=== PATIENT | female | born 1950 | race Caucasian/White ===

== ENCOUNTER 2018-04-07 18:12 | Emergency (ER) | payer OTHER ==
[~2018-04-07] VITALS: Ht 162.6 cm; Wt 54.4 kg
--- NOTE | ~2018-04-07 | EKG ---
[address] [address] [place] [address] ELECTROCARDIOGRAM REPORT Name: CONCETTA NIETO 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: [facility] : 1950 Requested By: Linda Lowery Order Number: [id number] MD: Jose M Phelps Measurements Intervals [place] Rate: 70 P: 20 NJ: 106 QRS: 50 QRSD: 87 T: 47 QT: 364 QTc: 393 Interpretive Statements Sinus rhythm Short NJ interval Probable anterior infarct, old Compared to ECG 08/31/2015 22:52:15 Septal Q waves are now present Electronically Signed On 04-08-2018 8:12:19 CDT by Jose M Phelps [email or web address] <ELECTRONICALLY SIGNED> By: Jose M Phelps MD, [facility] 04/08/18 0812 1824 23 Jose M Phelps MD, FACC /EPI
[~2018-04-07 18:12] MED LIST: AMOXICILLIN 50500 MG PO; BENTYL10 MG PO; BENZTROPINE MES1 MG PO; BISACODYL SUPP10 MG RECTAL; COLACE100 MG PO; CYMBALTA60 MG PO; DUONEB 2.5-0.5 M3 ML INH; ENOXAPARIN40 MG/0.1 SUBQ; GABAPENTIN 100100 MG PO; HYDROCODONE-APA1 TA1 PO; IBUPROFEN 400400 M2 PO; IRON325 PO; LEVOTHYROXINE 0.1 MG PO; MIRALAX17 GM; MYLANTA PO; RISPERDAL 3 MG T3 MG PO; SENNA8.6 M1 PO; SYMBICORT160 MCG/4.; SYMBICORT160 MCG/4. INH; THERA M PLUS T1 EAC2 PO; TRAMADOL 50 MG50 MG PO; TUSSIN15 MG/5 ML; TYLENOL325 MG PO; VALIUM5 MG PO; VALPROIC A250 MG/51 PO; VITAMIN D250000 UNIT PO; VITAMINC500 PO; ZYPREXA10 MG/VIAL IM
[2018-04-07 19:14] LABS: URINE BILIRUBIN NEGATIVE (Negative); URINE BLOOD NEGATIVE (Negative); URINE CLARITY CLEAR; URINE COLOR YELLOW; URINE GLUCOSE-RANDOM* NEGATIVE (Negative); URINE KETONES TRACE (Negative); URINE LEUKOCYTES NEGATIVE (Negative); URINE NITRITE NEGATIVE (Negative); URINE PROTEIN (DIPSTICK) NEGATIVE (Negative); URINE SPECIFIC GRAVITY 1.015 (1.005-1.035); URINE UROBILINOGEN 0.2 E.U./dl (0.2-1.0)
== END 2018-04-07 21:02 | disposition home or self-care (01) ==
LOC: ER 18:12
PROVIDERS: Emergency Medicine
DX: S00.03XA Contusion of scalp, initial encounter (principal); F17.210 Nicotine dependence, cigarettes, uncomplicated; F31.9 Bipolar disorder, unspecified; F41.9 Anxiety disorder, unspecified; E03.9 Hypothyroidism, unspecified; M19.90 Unspecified osteoarthritis, unspecified site; J44.9 Chronic obstructive pulmonary disease, unspecified; Z88.8 Allergy status to other drugs, medicaments and biological substances; Z88.2 Allergy status to sulfonamides; W01.0XXA Fall on same level from slipping, tripping and stumbling without subsequent striking against object, initial encounter; Y92.89 Other specified places as the place of occurrence of the external cause; Y93.89 Activity, other specified; Y99.8 Other external cause status

== ENCOUNTER 2019-09-06 13:10 | Inpatient (IN) | payer OTHER ==
[~2019-09-06] VITALS: Ht 162.6 cm; Wt 51.0 kg
[~2019-09-06 13:10] MED LIST changes: +SENNA PLUS TAB1 EACH PO; -SENNA8.6 M1 PO
[2019-09-06 15:09] LABS: ABSOLUTE NEUTROPHILS 7.2 thou/uL (1.4-8.2); BASOPHILS 0.4 % (0.0-2.0); EOSINOPHILS 0.4 % (0.0-3.0); HEMATOCRIT 37.8 % (37.0-47.0); HEMOGLOBIN 12.5 gm/dL (12.0-15.0); MCH 29.4 pg (26.0-34.0); MCHC 33.1 g/dL (28.0-37.0); MCV 88.9 fL (80.0-100.0); MONOCYTES 2.8 % (1.0-8.0); PLATELET COUNT 288 thou/uL (150-400); POLYS 85.4 % (36.0-66.0); RBC 4.25 mil/uL (4.20-5.00); RDW 15.8 % (10.5-14.5); WBC 8.4 thou/uL (4.0-11.0)
[2019-09-06 15:19] LABS: ANION GAP 6 mmol/L (7-16); BUN 10 mg/dL (7-18); CALCIUM 9.2 mg/dL (8.5-10.1); CHLORIDE 97 mmol/L (98-107); CO2 33 mmol/L (21-32); CREATININE 0.7 mg/dL (0.6-1.0); GLUCOSE 110 mg/dL (74-106); POTASSIUM 3.4 mmol/L (3.5-5.1); SODIUM 136 mmol/L (136-145)
[2019-09-06 15:28] LABS: MAGNESIUM 1.7 mg/dL (1.8-2.4); TROPONIN-I <0.06 ng/mL (<0.06)
[2019-09-06 15:42] LABS: URINE BILIRUBIN NEGATIVE (Negative); URINE BLOOD NEGATIVE (Negative); URINE CLARITY SL CLOUDY; URINE COLOR YELLOW; URINE GLUCOSE-RANDOM* NEGATIVE (Negative); URINE KETONES NEGATIVE (Negative); URINE NITRITE-REFLEX NEGATIVE (Negative); URINE PROTEIN (DIPSTICK) NEGATIVE (Negative); URINE SPECIFIC GRAVITY <= 1.005 (1.005-1.035); URINE UROBILINOGEN 0.2 E.U./dl (0.2-1.0)
[2019-09-06 15:43] LABS: URINE LEUKOCYTES-REFLEX 1+ (Negative)
[2019-09-06 15:52] LABS: BACTERIA-REFLEX >30 Many /HPF (None Seen); CASTS None Seen /LPF (None Seen); CRYSTALS None Seen /LPF (None Seen); SQUAMOUS None Seen /LPF (0-3); URINE RBC 0-2 Rare /HPF (0-2); URINE WBC-REFLEX 0-5 Rare /HPF (0-5)
[2019-09-06] MEDS ORDERED: FUROSEMIDE 20 M20 MG PO ×2 (16:19→23:01)
[2019-09-06] MEDS ORDERED: MIRTAZAPINE7.5 MG PO (16:20)
[2019-09-06] MEDS ORDERED: PREDNISONE 10 M10 M1 PO (16:20)
[2019-09-06] MEDS ORDERED: NEURONTIN100 MG PO (16:27)
[2019-09-06] MEDS ORDERED: BENTYL 10 MG CA10 MG PO (16:28)
[2019-09-06 16:35] VITALS: BP 92/55
[2019-09-06 17:21] LABS: TSH 5.537 uIU/mL (0.358-3.740)
[2019-09-06 18:36] VITALS: BP 102/63
[2019-09-06 19:30] VITALS: BP 106/69
[2019-09-06] MEDS ORDERED: BENZTROPINE ME0.5 MG PO (22:57)
[2019-09-06] MEDS ORDERED: CYMBALTA60 MG PO (23:00)
[2019-09-07] VITALS (10 sets, daily range): BP systolic 110–150; BP diastolic 66–90
[2019-09-07] MEDS ORDERED: VALPROIC A250 MG/51 PO (00:29)
[2019-09-07] MEDS ORDERED: SYMBICORT160 MCG/4. INH (00:38)
--- NOTE | 2019-09-07 00:43 | NUR ---
PATIENT WAS A NEW ADMISSION TO THE UNIT AT THE BEGINNING OF THIS SHIFT. SHE ARRIVED VIA CART FROM THE ER AND WAS TRANSFERRED TO THE BED WITHOUT INCIDENT. PATIENT IS CONFUSED AND UNABLE TO PARTICIPATE FULLY IN HER CARE PLAN. PATIENTS CHIEF COMPLAINT WAS PAIN AND SHE WAS TREATED APPROPRIATELY. BREATHING SATURATION WAS LOW UPON INITIAL ASSESSMENT. ORDERS OBTAINED FOR CONTINUOUS SAT MONITOR AND OXYGEN. THE SURGEON ASSESSED PATIENT AND NURSE RECEIVED ORDERS TO HAVE PATIENT READY FOR POTENTIAL SURGERY ON 09/08. PATIENT IS UNABLE TO CONSENT SO NURSING STAFF WILL HAVE TO CONTACT PATIENTS GUARDIAN. NURSE TO COMPLETE ADMISSION AND INITIATE PLAN OF CARE.
[2019-09-07 06:11] LABS: CALCIUM 8.3 mg/dL (8.5-10.1); CREATININE 0.6 mg/dL (0.6-1.0); POTASSIUM 4.3 mmol/L (3.5-5.1)
[2019-09-07 06:15] LABS: ALBUMIN 2.5 g/dL (3.4-5.0); PHOSPHORUS 4.1 mg/dL (2.5-4.9)
--- NOTE | 2019-09-07 06:32 | NUR ---
PT NOTED TO HAVE LARGE INFESTATION OF LICE WITH NITS AT LEAST 6 INCHES DOWN THE HAIR SHAFT. PT STATED THAT SHE HAS "BUGS" AND HAS PUT NIX ON THEM IN THE PAST BUT DOESNT HAVE ANY HELP GETTING THEM OUT. STATES ALL HER "FRIENDS" WHERE SHE LIVES HAS THEM WELL. SEVERAL BLOOD SPOTS NOTED ON PILLOW AND SCABS AT NAPE OF NECK. PT REPORTED THAT THEY ARE MISERABLE AND AGREED TO CUT HAIR WHERE IT WAS MATTED WITH BLOOD AND SCABS. NIX APPLIED PER ORDER, CAP PLACED AND BED CHANGED. PT TOLERATED WELL.
--- NOTE | 2019-09-07 07:10 | NUR ---
RECEIVED OT ORDER, PATIENT WITH A FRACTURED FEMORAL NECK AND RADIAL WRIST FX. WILL AWAIT ORDERS AFTER ORTHO CONSULT AND PROBABLE SURGERY.
--- NOTE | 2019-09-07 07:50 | HC ---
[facility] [place] [address] CONSULTATION Name: CONCETTA NIETO Room #: 354-P ADM IN M.R.#: [id number] Admission: 09/06/19 Attend Phys: Ashwini Guajardo Discharge: Date of : 48 Report #: [id number] THIS REPORT FOR: //name// CC: Steven Guajardo DATE OF SERVICE: 09/06/2019 CHIEF COMPLAINT: Fractures, left femoral neck and the left distal radius. HISTORY OF PRESENT ILLNESS: This very frail 69-year-old female is demented and is apparently a jorgensen of the [facility]. I am not certain of her current living location. She apparently fell, injuring the left hip and the left wrist. At the time of my evaluation, she is communicative and notes that she does have a hip injury and a wrist injury, but is unable to give much additional history. She is obviously demented, and is quite slender and quite frail. The left upper extremity is well-supported in a well-padded short arm splint. The fingers show good movement and satisfactory alignment, and satisfactory neurologic and vascular status. The left lower extremity is uncomfortable with any movement at the hip, but there is no obvious shortening nor any significant rotational deformity. The knee, lower leg, foot and ankle appear to be intact and stable. The opposite right lower extremity reveals satisfactory movement with only minor discomfort. IMAGING: X-rays of the left hip reveal a mildly impacted fracture of the femoral neck in slight valgus position with good bony impaction in a fairly stable position. There is mild degenerative arthritis of the hip. No other significant problems were noted. The opposite right hip already has a total hip arthroplasty, which appears to be well-positioned and stable. X-rays of the left wrist reveal a transverse fracture across the metaphyseal region of the distal radius. There is good bony contact and acceptable alignment without significant comminution. IMPRESSION AND PLAN: This frail 69-year-old female is demented and seems to have limited activity. Her left wrist fracture is probably stable, and I would suggest nonsurgical management with a cast or a splint with periodic inspection to monitor skin and comfort. The left hip is more difficult. The fracture is in satisfactory and fairly stable valgus impacted position. If she can be cooperative, this fracture may heal with and without surgery. If, however, she is noncooperative and tends to get up on her own and bear weight, then the fracture will probably displace; we could therefore consider either percutaneous screw fixation or hemiarthroplasty. Based upon the current limited information and the x-ray evaluation, I think I would suggest percutaneous screw stabilization as the best option. I have tried to contact the responsible green party, but have had no luck at the time of this dictation. We will see whether [facility] [address] [place] [address] CONSULTATION Name: CONCETTA NIETO Room #: 354-P [facility] IN M.R.#: [id number] Admission: 09/06/19 Attend Phys: Ashwini Guajardo Discharge: Date of : 48 Report #: [id number] Repacker can reach the appropriate persons and then consider our next step. On the chance that she will be able to go to the operating room tomorrow, we will try to keep her n.p.o., but we will have this discussion again at that point. For now, we will keep her at bed rest and protect the left wrist with a simple splint. <ELECTRONICALLY SIGNED> By: Nishant Degroot MD 09/07/19 0750 [id number] Nishant Degroot MD /nt
--- NOTE | 2019-09-07 08:04 | NUR ---
left VM with public inside sales administrator to call back.
--- NOTE | 2019-09-07 15:50 | NUR ---
INITIAL ASSESSMENT: HERIBERTO received consult due to pt being admitted from a nursing facility. Reviewed chart and spoke with nursing. Pt was admitted from [facility] due to an unwitnessed fall. Pt with left femoral neckfx and left radius fx. Pt to have surgery today per ortho. Consents obtained from [facility] office this morning. Pt is a jorgensen of the [facility]. Pt noted to have head lice upon admission. Pt is in isolation. HERIBERTO spoke with Duncan Torres with [facility] office to provide update. Duncan notified [facility]'s DON of head lice. Facility is looking into the matter. Plan is for pt to return to [facility] when medically stable. inventory planner to fax clinical updates to [facility] tomorrow. HERIBERTO is following to assist as needed with discharge planning.
--- NOTE | 2019-09-07 17:28 | EKG ---
[address] [employer] [place] [address] ELECTROCARDIOGRAM REPORT Name: CONCETTA NIETO Room #: 354-P ADM IN M.R.#: [id number] Admission: 09/06/19 Attend Phys: Ashwini Guajardo Discharge: Date of : 48 Report #: [id number] THIS REPORT FOR: //name// 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: [place] : 1950 Requested By: Joe Forbes Order Number: [id number] MD: Jose M Phelps Measurements Intervals [place] Rate: 85 P: 74 CO: 124 QRS: 66 QRSD: 85 T: 75 QT: 361 QTc: 430 Interpretive Statements Sinus rhythm No significant abnormality Compared to ECG 04/07/2018 18:24:01 Septal Q waves are no longer present Electronically Signed On 09-07-2019 17:27:53 SIPHONER by Jose M Phelps [email or web address] <ELECTRONICALLY SIGNED> By: Jose M Phelps MD, [facility] 09/07/19 1727 D: [id number] Jose M Phelps MD, FACC /EPI
--- NOTE | 2019-09-07 18:37 | NUR ---
CONT ON ISOLATION FOR LICE. NOTED TO HAVE QUITE A FEW LICE FALLING OFF HER HAIR ( ONE). SHE HAS NOT BEEN ITCHING. RETURNED FROM SURGERY WITH CAST TO LEFT HAND AND DRESSING TO LEFT HIP. WILL CONT WITH PLAN OF CARE.
[2019-09-08 04:19] VITALS: BP 125/74
--- NOTE | 2019-09-08 05:59 | NUR ---
PATIENT IS PROGRESSING SLOWLY IN HER CARE PLAN. VITAL SIGNS STABLE WITH PATIENT HAVING NO COMPLAINTS OF NAUSEA. PATIENT DID HAVE PAIN IN LEFT HIP AND WAS TREATED APPROPRIATELY. PATIENT IS CONFUSED AND UNABLE TO PARTICIPATE IN CARE. SURGICAL SITE REMAINS CLEAN, DRY, AND INTACT. BREATHING STABLE ON THREE LITERS NASAL CANNULA EVIDENCED BY ASSESSMENT AND SPOT OXYGENATION CHECKS. PATIENT DID HAVE A COUGHING FIT AND APPEARED TO CHOKE ON THICK SPUTUM. PATIENT SUCTIONED AND ORDER RECEIVED FROM PROVIDER FOR CORRECTIVE MEASURES WHICH WERE EFFECTIVE. CONTINUE PLAN OF CARE.
[2019-09-08 08:08] VITALS: BP 131/84
[2019-09-08 08:10] VITALS: BP 131/84
--- NOTE | 2019-09-08 14:57 | NUR ---
DISCHARGE PLANNING. PATIENT IS A RESIDENT AT [facility]. PLAN IS FOR PATIENT TO RETURN TO [facility] ONCE MEDICALLY READY. ANTICIPATED DISCHARGE PLANNED FOR THIS WEEKEND. CALL PLACED TO VIANCA ANTUNEZ FOR [facility] TO NOTIFY OF ANTICIPATED DISCAHRGE AND CLINICALS SENT. VOICE MAIL LEFT FOR HARMONY. FD FORM COMPLETED PER UNIT SW FOR TRANSPORTATION BACK TO [facility]. [facility] CONTACT NUMBER IS [phone] FAX [phone] PLEASE CONTACT [facility] ONCE PHYSICIAN COMPLETES DISCHARGE ORDERS TO ARRANGE PATIENT DISCHARGE. PLEASE FAX DISCHARGE ORDERS TO ABOVE FAX NUMBER. PLEASE FAX [facility] PCS FORM TO [phone] AND ARRANGE TRANSPORTATION THROUGH [facility] DISPATCH [phone]. INFORMATION ALSO AVAILABLE ON FD PCS FORM. THANK YOU.
[2019-09-08 15:06] VITALS: BP 147/90
--- NOTE | 2019-09-08 15:47 | NUR ---
HERIBERTO reviewed chart and spoke with nursing and attending physician. Pt may be ready for discharge back to [facility] over the weekend. Facility notified by strategic planner. HERIBERTO notified Duncan Torres with the [facility] Office to provide update. After Hours guardian will need to be notified when pt is discharged. Will need chart copy. HERIBERTO is following to assist as needed with discharge planning. [facility] PUBLIC PHYSICIAN CODER OFFICE: [phone] [facility] CONTACT NUMBER IS [phone] FAX [phone] PLEASE CONTACT [facility] ONCE PHYSICIAN COMPLETES DISCHARGE ORDERS TO ARRANGE PATIENT DISCHARGE. PLEASE FAX DISCHARGE ORDERS TO ABOVE FAX NUMBER. PLEASE FAX [facility] PCS FORM TO [phone] AND ARRANGE TRANSPORTATION THROUGH [facility] DISPATCH [phone]. INFORMATION ALSO AVAILABLE ON [facility] PCS FORM. THANK YOU.
--- NOTE | 2019-09-08 19:29 | NUR ---
pt is A&OX2 ( person and place), pt is confusion at time, pt starts eating and drinking, pt is continuing o2 3L/min/nc, and iv abx, pt's vs and o2sat are stable, pt's L HIP surgical dressing is CDI, pt's L hand is warm with cast, pt has pain when change position, but pt is tolerated pain.pt may dc to SN tomorrow.
[2019-09-08 22:11] VITALS: BP 150/119
[2019-09-09 02:58] VITALS: BP 118/83
--- NOTE | 2019-09-09 06:27 | NUR ---
PT REFUSING TO WEAR OXYGEN AND 02 LEVELS AT 85-90%. HOB AT 45 DEGREES. PT CALLED OUT 2X FOR PAIN MEDICATION. TRAMADOL GIVEN WITH GOOD RESULTS BOTH TIMES. JOHNS IN PLACE WITH 300+ML URINE OUTPUT FOR SHIFT. ISOLATION AND FALL PRECAUTIONS IN PLACE. HOURLY ROUNDING. PT SHOULD DC BACK TO HER FACILITY TODAY. [facility] TICKET TO RIDE IS ON TOP OF CHART IN BINDER. [T CAN USE CALL LIGHT EFFECTIVELY.
[2019-09-09 09:00] VITALS: BP 121/87
[2019-09-09] MEDS ORDERED: ENOXAPARIN40 MG/0.1 SUBQ (09:17)
[2019-09-09] MEDS ORDERED: CEFUROXIME250 MG PO (09:17)
[2019-09-09] MEDS ORDERED: RISPERDAL 1 MG T1 MG PO (09:18)
[2019-09-09] MEDS ORDERED: TRAMADOL 50 MG50 MG PO (09:18)
--- NOTE | 2019-09-09 15:55 | NUR ---
PT is A&OX2 ( person and place ), but pt is confused at time, pt is contiunig o2 2 L/MIN/NC and iv abx, pt's vs and o2sat are stable, pt's L hip surgical dressing has changed, L hip incision is intact, small clear drinage, pt will DC to [facility] today, RN has giveing report , RN has notified [facility] public administrcotor office about pt's discharge, pt has pain medication about 1400pm, RN has report to [facility] and home nurse to F/U surgical Dr in 1 week, pt's L arm cast is CDI, PT'L hand is warm.
[2019-09-09 16:19] VITALS: BP 144/94
--- NOTE | 2019-09-09 17:03 | NUR ---
[facility] ambulance shrimp picker pt to SNF now, pt is cooperative.
--- NOTE | 2019-09-12 12:28 | O ---
[facility] [place] [address] OPERATIVE REPORT Name: CONCETTA NIETO Room #: 354-P [facility] IN M.R.#: [id number] Admission: 09/06/19 Attend Phys: Ashwini Guajardo Discharge: 09/09/19 Date of : 48 Report #: [id number] THIS REPORT FOR: //name// CC: Steven Guajardo DATE OF SERVICE: 09/07/2019 PREOPERATIVE DIAGNOSES: Fracture, left femoral neck and fracture, left distal radius. POSTOPERATIVE DIAGNOSES: Fracture, left femoral neck and fracture, left distal radius. PROCEDURES: Percutaneous screw fixation, left femoral neck fracture and closed reduction with cast application, left distal radius fracture. SURGEON: Nishant Degroot MD INDICATIONS: This frail 69-year-old female is demented and a jorgensen of the [facility]. I am uncertain with regard to her activity or ambulation level. She apparently fell injuring both the left hip and the left wrist. X-rays reveal a valgus impacted femoral neck fracture in satisfactory position and a transverse fracture of the metaphyseal region of the left distal radius, which is also in acceptable position. I feel percutaneous pin fixation of the femur fracture is most appropriate. I think the risk and probably be managed in a cast. DESCRIPTION OF PROCEDURE: The patient was taken to the operating room where she was placed under brief general anesthetic. She was positioned on the fracture table, so that the left hip could be visualized. Prophylactic intravenous antibiotics were administered. C-arm was used. A small skin incision was made over the lateral aspect of the proximal femur. Three guidewires were positioned using C-arm guidance and then three 7.5 mm cannulated screws were placed, bringing these about 5 mm below the subchondral bone at the femoral head. The head seems to be in satisfactory valgus position and seems to be well impacted and stable. Screw purchase is satisfactory, although she does seem to have significant osteoporosis. The small skin incision was closed with 2-0 Vicryl and skin [place]. Attention was then directed to the left wrist. The previous splint was removed and gentle manipulation performed. A C-arm was used to visualize the fracture, improved and acceptable alignment was established. A well-padded short arm fiberglass cast was then applied. C-arm views show satisfactory position of the [facility] [address] [place] [address] OPERATIVE REPORT Name: CONCETTA NIETO Room #: 354-P [facility] IN M.R.#: [id number] Admission: 09/06/19 Attend Phys: Ashwini Guajardo Discharge: 09/09/19 Date of : 48 Report #: [id number] distal radius fracture. The patient was then awakened and returned to recovery room in satisfactory condition. <ELECTRONICALLY SIGNED> By: Nishant Degroot MD 09/12/19 1228 1251 1344 Nishant Degroot MD /nt
== END 2019-09-09 17:02 | DRG 480 ==
LOC: ER 13:10 → 3W 18:31 → ICU 09-07 16:41 → 3W 09-07 16:46
PROVIDERS: Emergency Medicine; ADMIT Hospitalist
PROC: 0QH734Z Insertion of Internal Fixation Device into Left Upper Femur, Percutaneous Approach (ICD-10-PCS; principal; 2019-09-07)
PROC: 0PSJXZZ Reposition Left Radius, External Approach (ICD-10-PCS; 2019-09-07)
PROC: 2W3DX2Z Immobilization of Left Lower Arm using Cast (ICD-10-PCS; 2019-09-07)
PROC: 2W5 Placement, Anatomical Regions, Removal (ICD-10-PCS; 2019-09-07)
DX: S72.002A Fracture of unspecified part of neck of left femur, initial encounter for closed fracture (principal); E43 Unspecified severe protein-calorie malnutrition; S52.92XA Unspecified fracture of left forearm, initial encounter for closed fracture; N39.0 Urinary tract infection, site not specified; Z68.1 Body mass index [BMI] 19.9 or less, adult; E87.6 Hypokalemia; E86.0 Dehydration; F20.9 Schizophrenia, unspecified; F41.9 Anxiety disorder, unspecified; F31.9 Bipolar disorder, unspecified; E03.9 Hypothyroidism, unspecified; M19.90 Unspecified osteoarthritis, unspecified site; J44.9 Chronic obstructive pulmonary disease, unspecified; K58.9 Irritable bowel syndrome, unspecified; W01.0XXA Fall on same level from slipping, tripping and stumbling without subsequent striking against object, initial encounter; I95.9 Hypotension, unspecified; E83.42 Hypomagnesemia; F17.210 Nicotine dependence, cigarettes, uncomplicated; K59.00 Constipation, unspecified; E53.8 Deficiency of other specified B group vitamins; B96.20 Unspecified Escherichia coli [E. coli] as the cause of diseases classified elsewhere; M81.0 Age-related osteoporosis without current pathological fracture; Z88.8 Allergy status to other drugs, medicaments and biological substances; Z79.899 Other long term (current) drug therapy; Y93.89 Activity, other specified; Y92.89 Other specified places as the place of occurrence of the external cause; Y99.8 Other external cause status; Z79.52 Long term (current) use of systemic steroids; Z23 Encounter for immunization
CPT/HCPCS: 10879; 50010; 50101; 50386; 51412; 51538; 52304; 53400; 56525; 57092; 62110; 62900; 70005

== ENCOUNTER 2020-04-08 12:20 | Inpatient (IN) | payer OTHER ==
[~2020-04-08] VITALS: Ht 162.6 cm; Wt 62.1 kg
--- NOTE | ~2020-04-08 | HC ---
[facility] [place] [address] CONSULTATION Name: CONCETTA NIETO Room #: 239-P ADM IN M.R.#: [id number] Admission: 04/08/20 Attend Phys: Giancarlo Spaulding MD Discharge: Date of : 48 Report #: [id number] THIS REPORT FOR: cc: Steven Alvarenga MD, Dennis R MD Sears, Ryan D. DO ~ CC: Steven Spaulding DATE OF SERVICE: 04/22/2020 PALLIATIVE CARE CONSULTATION REQUESTING PHYSICIAN: Dr. Sherman. CHIEF COMPLAINT: SARS-CoV-2. HISTORY OF PRESENT ILLNESS: The patient is a 69-year-old female who presented to [facility] initially on 04/08/2020. At such time, the patient had presented from [facility]. She had initial evaluation was for left jaw abscess. She had significant left facial swelling on presentation, was also noted to have a history of schizophrenia and bipolar disorder and significant COPD. This cellulitis was eventually noted to be parotiditis. She was also found to have bacteremia. On 04/14/2020, her obtain coronavirus testing came back positive. Subsequently unfortunately, the patient has had acute respiratory failure and required intubation. The edema associated with the cellulitis and potentially fluid buildup has led to airway compromise. She has been on steroids, but again with mechanical ventilation, she has required increased oxygen, now at 90% FiO2. She is on ventilator day #11. She has had prone ventilation as tolerated. Overall suspected worsening infection despite interventions, hypotensive over the previous night prior to my consultation, received volume along with albumin, but again worsening oxygenation as a result of this, has not been responsive. She does have a public gis administrator in place. PAST MEDICAL HISTORY: Significant for schizophrenia, bipolar disorder, hypothyroidism, COPD, irritable bowel syndrome. MEDICATIONS: Currently, Lasix 40 mg daily, Levophed, magnesium oxide, DuoNebs, potassium replacement, levothyroxine, dexamethasone 8 mg daily, Lovenox, vancomycin, Cymbalta, Humalog sliding scale, Rocephin, propofol. ALLERGIES: THORAZINE AND LORATADINE. FAMILY HISTORY: Unobtainable due to present medical condition. [facility] [address] [place] [address] CONSULTATION Name: CONCETTA NIETO Room #: 239-P [facility] IN M.R.#: [id number] Admission: 04/08/20 Attend Phys: Giancarlo Spaulding MD Discharge: Date of : 48 Report #: [id number] PAST SURGICAL HISTORY: Unobtainable due to present medical condition. REVIEW OF SYSTEMS: At this present time, this is unobtainable again, the patient ventilated, nonresponsive. PHYSICAL EXAMINATION: VITAL SIGNS: Temperature 37.1, pulse 89, respirations 12, blood pressure 100/54, 98% on ventilatory support. GENERAL: The patient is not alert. Certainly, she is ventilated at this time. No significant acute distress. HEENT: Again ventilatory tube in proper placement. RESPIRATORY: No apparent tachypnea over vent. CARDIOVASCULAR: Mild diffuse edema. ABDOMEN: No significant distention noted. LABORATORY DATA: These include hemoglobin 7.2, sodium 130, creatinine 0.2. ASSESSMENT AND PLAN: 1. Acute hypoxic respiratory failure. Again, due to SARS-CoV-2 and airway edema, possibly related to parotitis, at this time, the patient is on ventilatory support, but any worsening overall direction did discuss with the public gis administrator. This had paperwork to request a do not resuscitate for patient, which I feel would be appropriate at this time. I was waiting to receive this. I have not received this by the evening. We will fill it out as soon as received. Additionally, I did discuss that the patient may worsen overall and continued to worsen and therefore may represent a medical futility if agreed upon by the primary team. Certainly, she has a poor overall prognosis. If felt to benefit from a quality of life standpoint, but certainly from a standpoint that further medical treatment is not beneficial, then we may consider changing to a palliative type of case management with palliative extubation. At this point in time, awaiting DNR first and then at a secondary point, we would discuss with other team members to determine whether the case and what direction to take. 2. SARS-CoV-2, again overall leading to this preexisting hypoxic respiratory failure and causing her overall presentation appears to be worsening significantly, especially with previous pharyngeal edema. 3. Parotitis, again leading to a significant management issues with regards to her current condition, again, waiting on DNR status and then a consideration from the primary team whether they feel that she would benefit from continued medical interventions versus palliative type medical interventions. [address] [address] CONSULTATION Name: CONCETTA NIETO Room #: 239-P [facility] IN M.R.#: [id number] Admission: 04/08/20 Attend Phys: Giancarlo Spaulding MD Discharge: Date of : 48 Report #: [id number] Thank you very much for this consultation. We will continue to follow up with the team. Please contact me for any questions regarding her care. By: 2142 [id number] Phill Wheeler DO /nt
[~2020-04-08 12:20] MED LIST changes: +BENTYL 10 MG CA10 MG PO; +BENZTROPINE ME0.5 MG PO; +CEFUROXIME250 MG PO; +FUROSEMIDE 20 M20 MG PO; -LEVOTHYROXINE 0.1 MG PO; -MIRALAX17 GM; +MIRALAX17 GM PO; +MIRTAZAPINE7.5 MG PO; +NEURONTIN100 MG PO; +PREDNISONE 10 M10 M1 PO; +RISPERDAL 1 MG T1 MG PO; +SYNTHROID100 MC1 PO
[2020-04-08 12:21] VITALS: BP 156/100
[2020-04-08 13:10] LABS: HEMATOCRIT 39.8 % (37.0-47.0); HEMOGLOBIN 13.3 gm/dL (12.0-15.0); MCH 28.8 pg (26.0-34.0); MCHC 33.5 g/dL (28.0-37.0); MCV 85.9 fL (80.0-100.0); PLATELET COUNT 456 thou/uL (150-400); RBC 4.64 mil/uL (4.20-5.00); RDW 15.6 % (10.5-14.5); WBC 30.1 thou/uL (4.0-11.0)
[2020-04-08 13:33] LABS: ALBUMIN 2.4 g/dL (3.4-5.0); CALCIUM 8.8 mg/dL (8.5-10.1); CREATININE 0.6 mg/dL (0.6-1.0); TOTAL BILIRUBIN 0.8 mg/dL (0.2-1.0); TOTAL PROTEIN 7.4 g/dL (6.4-8.2)
[2020-04-08 13:41] LABS: POTASSIUM 2.8 mmol/L (3.5-5.1)
[2020-04-08 14:10] LABS: ABSOLUTE NEUTROPHILS 27.1 thou/uL (1.4-8.2); METAMYELOCYTES 1 %
[2020-04-08 16:38] LABS: TSH 4.013 uIU/mL (0.358-3.740)
[2020-04-08] MEDS ORDERED: INGREZZA40 MG PO (19:29)
[2020-04-08] MEDS ORDERED: IBU600 MG PO (19:31)
[2020-04-08 20:20] VITALS: BP 134/82
--- NOTE | 2020-04-08 20:30 | NUR ---
TRIED CALLING REPORT, NURSE UNAVAILABLE.
[2020-04-08 20:56] VITALS: BP 127/74
[2020-04-09 04:20] LABS: HEMATOCRIT 33.4 % (37.0-47.0); MCH 29.2 pg (26.0-34.0); MCHC 33.4 g/dL (28.0-37.0); MCV 87.3 fL (80.0-100.0); RBC 3.83 mil/uL (4.20-5.00); RDW 15.8 % (10.5-14.5); WBC 25.1 thou/uL (4.0-11.0)
[2020-04-09 04:24] LABS: HEMOGLOBIN 11.2 gm/dL (12.0-15.0); PLATELET COUNT 349 thou/uL (150-400)
[2020-04-09 04:39] LABS: CALCIUM 8.2 mg/dL (8.5-10.1); CREATININE 0.6 mg/dL (0.6-1.0); MAGNESIUM 2.6 mg/dL (1.8-2.4)
[2020-04-09 04:52] LABS: POTASSIUM 3.8 mmol/L (3.5-5.1)
[2020-04-09 05:14] VITALS: BP 133/82
[2020-04-09 05:27] LABS: ABSOLUTE NEUTROPHILS 22.3 thou/uL (1.4-8.2)
[2020-04-09 05:28] LABS: ANISOCYTOSIS 1+; PLATELET ESTIMATE NORMAL; POIKILOCYTOSIS 1+
--- NOTE | 2020-04-09 06:41 | NUR ---
RECEIVED REPORT FROM KM ULRICH RN.PATIENT ARRIVED TO ROOM 204 AROUND 2049.ALERT BUT SLEEPY.WILL ANSWER SOME QUESTIONS BUT FORGETS AND CAN BE CONFUSED AT TIMES.PAIN WELL CONTROLLED.MONITOR SHOWS SINUS TACHY.POC CONTINUED.
[2020-04-09 07:47] VITALS: BP 135/91
[2020-04-09 11:40] VITALS: BP 132/85
--- NOTE | 2020-04-09 15:25 | NUR ---
PLEASANTLY CONFUSED. COMPLETE CARES. INCONTINENT OF URINE WITH BRIEF. SHE PERMITTED US TO CUT URINE SOAKED STREET CLOTHES OFF EARLY THIS A.M. POSITIVE BC CALLED TO DR. MARTINEZ AT 0900. DR. JIMENEZ HERE, ADDS VANCOMYCIN TO [place]. ST PER TELE. FALL PRECAUTIONS IN PLACE. WILL CONTINUE TO FOLLOW CLOSELY.
--- NOTE | 2020-04-09 16:33 | NUR ---
Patient admits from [facility] with jaw pain and swelling. Patient with hx of schzophrenia, bipolar, copd. Sp with TATO Constantino who is deputy PA who gives consent to treat. Updated RN. Plan return to [facility]. [facility]emgt following.
[2020-04-09 19:46] VITALS: BP 111/75
[2020-04-10 05:34] VITALS: BP 112/61
[2020-04-10 06:03] LABS: HEMATOCRIT 30.2 % (37.0-47.0); HEMOGLOBIN 9.9 gm/dL (12.0-15.0); MCHC 32.8 g/dL (28.0-37.0); MCV 88.5 fL (80.0-100.0); RBC 3.42 mil/uL (4.20-5.00); RDW 15.6 % (10.5-14.5); WBC 19.6 thou/uL (4.0-11.0)
[2020-04-10 06:35] LABS: CALCIUM 7.7 mg/dL (8.5-10.1); CREATININE 0.5 mg/dL (0.6-1.0); POTASSIUM 4.7 mmol/L (3.5-5.1)
[2020-04-10 07:48] VITALS: BP 121/75
--- NOTE | 2020-04-10 07:48 | NUR ---
ASSUMED PT CARE AT 1900. PT IS ALERT BUT CONFUSED. NO SIGN OF DISTRESS NOTED IN PT. PT DOES SEEM AGITATED UPON MOVEMENT. PT IS STABLE. FALL PRECAUTION IN PLACE. ASSESSMENT COMPLETED AND DOCUMENTED. VERBALIZES PAIN. PAIN MED ADMINISTERED TO PT NEEDED. SCHEDULED MEDS ADMINISTERED TO OT. TOLERATED PO INTAKE. NO EVENTS OVERNIGHT. NO FURTHER NEEDS AT THIS TIME
[2020-04-10 12:25] VITALS: BP 115/74
[2020-04-10 16:26] VITALS: BP 123/88
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
[2020-04-10 19:20] VITALS: BP 130/82
[2020-04-11 01:20] LABS: URINE BILIRUBIN NEGATIVE (Negative); URINE BLOOD NEGATIVE (Negative); URINE CLARITY CLEAR; URINE COLOR YELLOW; URINE GLUCOSE-RANDOM* NEGATIVE (Negative); URINE KETONES 1+ (Negative); URINE LEUKOCYTES-REFLEX NEGATIVE (Negative); URINE NITRITE-REFLEX NEGATIVE (Negative); URINE PROTEIN (DIPSTICK) TRACE (Negative); URINE SPECIFIC GRAVITY >= 1.030 (1.005-1.035)
[2020-04-11 03:30] VITALS: BP 134/73
--- NOTE | 2020-04-11 06:30 | NUR ---
ASSUMED PT CARE AT 1900, PT IS AWAKE, DROWSY, ORIENTED TO PERSON, SR ON THE MONITOR, ASSESSMENTS CHARTED, REMAINS INCONTINENT OF BOWEL AND BLADDER, DENIES PAIN OR SOB, LEFT JAW STILL SWOLLEN, ATEMPTED TO MASSAGE IT BUT PT REFUSED, PT IS MORE ALERT THIS MORNING, TALKED TO HER THE IMPORTANCE OF BEING COMPLAIANT WITH CARE, RESTING IN BED, NO DISTRESS NOTED
[2020-04-11 06:52] LABS: HEMATOCRIT 27.8 % (37.0-47.0); HEMOGLOBIN 9.2 gm/dL (12.0-15.0); MCH 29.2 pg (26.0-34.0); MCHC 33.1 g/dL (28.0-37.0); MCV 88.4 fL (80.0-100.0); RBC 3.14 mil/uL (4.20-5.00); RDW 15.8 % (10.5-14.5); WBC 14.1 thou/uL (4.0-11.0)
[2020-04-11 07:02] LABS: CALCIUM 8.1 mg/dL (8.5-10.1); CREATININE 0.4 mg/dL (0.6-1.0); POTASSIUM 4.6 mmol/L (3.5-5.1)
[2020-04-11 07:50] VITALS: BP 129/69
[2020-04-11 11:32] VITALS: BP 120/67
--- NOTE | 2020-04-11 15:02 | NUR ---
FAXED CLINICAL UPDATE TO [facility] RECEIVED CONFIRMATION AND LEFT MSG WITH BUBBA IN ADM. DP TO FOLLOW.
[2020-04-11 15:16] VITALS: BP 147/83
--- NOTE | 2020-04-11 17:45 | NUR ---
PT CARE ASSUMED APPROX 0700. ASSESSMENTS CHARTED. PT REPORTS PAIN TO LEFT CHEEK. CURRENT POC MANAGING PAIN. VSS. TURNING PT Q2 HRS AND PRN. PT MORE ALERT BUT REMAINS CONFUSED. NOT IMPULSIVE. POOR APPETITE. DR MARTINEZ NOTIFIED. PT TOLERATING POC OTHERWISE. NO DISTRESS NOTED.
[2020-04-11 19:53] VITALS: BP 134/77
[2020-04-12 03:44] VITALS: BP 155/84
--- NOTE | 2020-04-12 04:24 | NUR ---
ASSUME PT CARE AT 1900. PT IS ALERT BUT CONFUSED. PT VERBALIZES PAIN. PAIN MED ADMINISTERED TO PT. ASSESSMENT COMPLETED AND DOCUMENTED. FALL PRECAUTION IN PLACE. PT IS NOTICED TO HAVE WHEEZING. SALES MANAGER NOTIFIED. BREATHING TREATMENT ORDERED. SCHEDULED MEDS ADMINISTERED TO PT. TOLERATED PO INTAKE. PT COUGHS WITH THIN LIQUIDS. CONTINUE TO MONITOR PT. NO FURTHER NEEDS AT THIS TIME.
[2020-04-12 05:48] LABS: HEMATOCRIT 31.6 % (37.0-47.0); HEMOGLOBIN 10.2 gm/dL (12.0-15.0); MCH 28.6 pg (26.0-34.0); MCHC 32.1 g/dL (28.0-37.0); RBC 3.55 mil/uL (4.20-5.00); RDW 15.5 % (10.5-14.5); WBC 12.1 thou/uL (4.0-11.0)
[2020-04-12 05:52] LABS: CALCIUM 8.2 mg/dL (8.5-10.1); CREATININE 0.6 mg/dL (0.6-1.0); POTASSIUM 4.6 mmol/L (3.5-5.1)
[2020-04-12 08:00] VITALS: BP 120/94
--- NOTE | 2020-04-12 08:43 | NUR ---
ASSUMED CARE OF PT AT SHIFT CHANGE, REPORTS OF YELLING AND SCREAMING AND NO SLEEP UNTIL 0500, PT KNOWS HER BDATE. VERY LOUD. LOOKED AT PICS OF ANIMALS AND CALMED DOWN, THEN YELLS AND DOESN'T MAKE SENSE, WILL CONTINUE TO MONITOR. CHANGED TELEVISION TO SOMETHING CALMER. WILL CONTINUE TO MONITOR. IS NOT IMPULSIVE THUS FAR, BED ALARM ENGAGED, SEE SEPARATE INTERVENTIONS FOR ASSESMENTS.
[2020-04-12 11:00] VITALS: BP 121/88
--- NOTE | 2020-04-12 15:16 | NUR ---
Patient resident of [facility]. If discharge over weekend Call [facility] [phone] If need transport call [facility] [phone]. Notify Public [employer] Machine Operator [phone] for consent to discharge.
[2020-04-12 16:00] VITALS: BP 147/86
[2020-04-12 19:53] VITALS: BP 175/99
[2020-04-13] VITALS (52 sets, daily range): BP systolic 81–185; BP diastolic 49–101
--- NOTE | 2020-04-13 00:43 | NUR ---
IT WAS NOTED THAT THE SHIFT PROGRESSED, FACIAL SWELLING INCREASED AND RIGHT SIDE OF THE FACE BEGAN TO SWELL WELL. NO NOTIFIED AND ENT PAGED. PT CONTINOUSLY HAVE INCREASED SECRETIONS. OXYGEN PLACED ON PATIENT. WAITING YARN WRAPPER BACK FROM ENT. CONTINUE TO MONITOR PT.
--- NOTE | 2020-04-13 03:44 | NUR ---
PT WAS INTUBATED BY DR YOUNGBLOOD DUE TO INCREASED AMOUNT OF SWELLING NOTED ON CAT SCAN. DR JAMES NOTIFIED ABOUT PT'S STATUS. PT IS STABLE POST-INTUBATION AND SHE IS TRANSFERRED TO ICU. CONTINUE TO MONITOR PT. NO FURTHER NEEDS AT THIS TIME.
[2020-04-13 03:57] LABS: BE(vivo) 0.9 mmol/L (-2 to +3); HCO3 22.2 mmol/L (22.0-26.0); PCO2 26.3 mmHg (35.0-45.0); PO2 213.4 mmHg (80.0-100.0); pH 7.545 (7.360-7.450); sO2 99.6 % (92.0-98.0)
[2020-04-13 05:47] LABS: CALCIUM 8.2 mg/dL (8.5-10.1); CREATININE 0.5 mg/dL (0.6-1.0)
--- NOTE | 2020-04-13 05:47 | NUR ---
Pt was transferred, intubated from Rm 204, per report, she was having increasing difficulty maintaining her airway, the left throat swelling was increasing, she became tachypneic, restless, and her sats were dropping despite supplemental O2. Pt is MARIO's, but not following commands, she was restrained to protect the ETT and peripheral IV. An #18 OGT was placed, and placement of the ETT and OGT was confirmed. The left side of her neck is red, warm to touch and swollen, as compared to the right side, pt will remain NPO at this time. Pt also had a #16 Fr collaod catheter placed, for I&O and also, pt is incontinent of bowel and bladder. After initial ABG was collected, the vent settings were adjusted and are currently, TV 450, PeeP of 5, FiO2 is 40 % and a rate of 14, her lungs are diminished and coarse to the bennett bases, sats are 98% and above, thick medrano secretions are suctioned. The pt has areas of bruising on her arms, she is quite thin and her candice area is slightly reddened. The bed is in the low/locked position, the siderails are up x 4, and the call light is within reach. ENT was notified of transfer. Her facesheet does not list any family, and the name provided is likely from her nursing facility. Will continue to monitor
[2020-04-13 06:00] LABS: HEMATOCRIT 38.2 % (37.0-47.0); MCH 28.5 pg (26.0-34.0); MCHC 32.2 g/dL (28.0-37.0); MCV 88.5 fL (80.0-100.0); RBC 4.32 mil/uL (4.20-5.00); RDW 15.6 % (10.5-14.5); WBC 14.9 thou/uL (4.0-11.0)
[2020-04-13 06:03] LABS: POTASSIUM 4.6 mmol/L (3.5-5.1)
[2020-04-13 06:08] LABS: HEMOGLOBIN 12.3 gm/dL (12.0-15.0)
--- NOTE | 2020-04-13 09:38 | NUR ---
ASSUMED CARE AT 0700, ASSESSMENT AND VITAL SIGNS COMPLETED PER ICU PROTOCOL. PT REMAINS INTUBATED AND SEDATED. RN WILL CONTINUE TO FOLLOW POC AND MONITOR.
[2020-04-13 11:25] LABS: BE(vivo) 0.2 mmol/L (-2 to +3); HCO3 23.5 mmol/L (22.0-26.0); PCO2 33.3 mmHg (35.0-45.0); PO2 104.4 mmHg (80.0-100.0); pH 7.466 (7.360-7.450); sO2 98.1 % (92.0-98.0)
--- NOTE | 2020-04-13 17:42 | NUR ---
CONSULTED TO PLACE A PICC FOR A PATIENT IN ICU. ORDER AND CONSENT NOTED. A #5F TRIPLE LUMEN POWER PICC WAS PLACED AFTER A BEDSIDE TIMEOUT WAS COMPLETED. THE LINE WAS TRIMMED TO 39CM AAND ADVANCED WITHOUT DIFFICULTY. LINE WAS CONFIRMED WITH A STAT CHEST XRAY AND RELEASED FOR USE
[2020-04-14] VITALS (96 sets, daily range): BP systolic 86–133; BP diastolic 46–85
--- NOTE | 2020-04-14 01:50 | NUR ---
PATIENT BECAME HYPOTENSIVE DUE TO SEDATION EARLY IN SHIFT. ORDERS OBTAINED FOR LEVOPHED GTT WHICH HAS BEEN TITRATED TO GOOD EFFECT.
[2020-04-14 05:24] LABS: HEMATOCRIT 31.3 % (37.0-47.0); MCH 28.5 pg (26.0-34.0); MCHC 32.7 g/dL (28.0-37.0); MCV 87.3 fL (80.0-100.0); PLATELET COUNT 433 thou/uL (150-400); RBC 3.58 mil/uL (4.20-5.00); WBC 20.1 thou/uL (4.0-11.0)
[2020-04-14 05:32] LABS: HEMOGLOBIN 10.2 gm/dL (12.0-15.0)
[2020-04-14 06:07] LABS: ALBUMIN 1.7 g/dL (3.4-5.0); CALCIUM 7.4 mg/dL (8.5-10.1); CREATININE 0.5 mg/dL (0.6-1.0); MAGNESIUM 1.6 mg/dL (1.8-2.4); PHOSPHORUS 4.7 mg/dL (2.5-4.9); TOTAL BILIRUBIN 0.3 mg/dL (0.2-1.0); TOTAL PROTEIN 5.1 g/dL (6.4-8.2)
[2020-04-14 06:12] LABS: POTASSIUM 3.5 mmol/L (3.5-5.1)
--- NOTE | 2020-04-14 07:47 | NUR ---
ASSUMED PATIENT CARE AT 1845. BREATHING STABLE ON VENTILATOR EVIDENCED BY ASSESSMENT AND CONTINUOUS SATURATION MONITORING. PATIENT WAS AGITATED AT THE START OF SHIFT BEFORE ADEQUATE SEDATION TOOK AFFECT. PATIENT VERY IMPULSIVE WHEN ALERT WITH ATTEMPTS MADE AT BREATHING TUBE. LEVOPHED PROVIDED FOR BLOOD PRESSURE SUPPORT. CONTINUE PLAN OF CARE.
[2020-04-14 10:17] LABS: METAMYELOCYTES 1 %
[2020-04-14 10:18] LABS: ABSOLUTE NEUTROPHILS 19.3 thou/uL (1.4-8.2)
[2020-04-14 10:19] LABS: ANISOCYTOSIS SLIGHT; OVALOCYTES FEW; POIKILOCYTOSIS SLIGHT
--- NOTE | 2020-04-14 19:45 | NUR ---
Pt sedated with Propofol and Fentanyl infusions. Pt becomes restless when sedation is paused. Maintained on ventilator with no weaning trials. Left jaw remains firm and swollen. Jaw massaged as per orders. Pt placed in enhanced precautions today per orders from DR Weiss. COVID test sent to the lab. Report to oncanna SHARP.
[2020-04-15] VITALS (70 sets, daily range): BP systolic 72–144; BP diastolic 34–87
[2020-04-15 05:41] LABS: BE(vivo) 2.4 mmol/L (-2 to +3); HCO3 28.6 mmol/L (22.0-26.0); PCO2 52.1 mmHg (35.0-45.0); PO2 97.2 mmHg (80.0-100.0); pH 7.358 (7.360-7.450); sO2 97.1 % (92.0-98.0)
[2020-04-15 06:07] LABS: ABSOLUTE NEUTROPHILS 15.6 thou/uL (1.4-8.2); HEMATOCRIT 28.6 % (37.0-47.0); HEMOGLOBIN 9.3 gm/dL (12.0-15.0); LYMPHOCYTES 2.4 % (24.0-44.0); MCH 28.8 pg (26.0-34.0); MCHC 32.6 g/dL (28.0-37.0); MCV 88.3 fL (80.0-100.0); MONOCYTES 1.1 % (1.0-8.0); PLATELET COUNT 370 thou/uL (150-400); POLYS 96.5 % (36.0-66.0); RBC 3.24 mil/uL (4.20-5.00); RDW 15.5 % (10.5-14.5); WBC 16.2 thou/uL (4.0-11.0)
[2020-04-15 06:20] LABS: ALBUMIN 1.6 g/dL (3.4-5.0); CALCIUM 7.5 mg/dL (8.5-10.1); CREATININE 0.5 mg/dL (0.6-1.0); POTASSIUM 3.8 mmol/L (3.5-5.1); TOTAL BILIRUBIN 0.2 mg/dL (0.2-1.0); TOTAL PROTEIN 4.8 g/dL (6.4-8.2)
--- NOTE | 2020-04-15 06:33 | NUR ---
SED VACATION AT 2100. PT OPENS EYES, MAINTAINS EYE CONTACT BUT DOESNT FOLLOW COMMANDS. PT WAS ON 28MCG OF PROPOFOL AND 75 MCG OF FENTANYL. PT WAS THRASHING AND WIGGLING IN BED. PROPOFOL RESTARTED AT 35MCG, THEN INCREASED TO 40MCG TO KEEP PT RESTED AND CALM. PT HAS SIGNIFICANT PSYCH HX WILL INFORM DAY RN TO PASS ON TO HOSPITALIST TO GET HOME MEDS RESTARTED. PT HAD TOTAL OF 850ML U/O. PT IS STABLE FOR NOW, BATH THIS SHIFT. DOUBLE CONC LEVO WEANED OFF TO 3MCG WILL CONTINUE TO MONITOR
--- NOTE | 2020-04-15 06:59 | NUR ---
PATIENT TRANSFER FROM CCU TO ICU D/T DECLINE IN RESP. STATUS, PATIENT IS NOT FOLLOWING COMMANDS. WILL NEED NEW ORDERS TO INITATE OT SERVICES WHEN APPROPRIATE.
--- NOTE | 2020-04-15 09:00 | NUR ---
chart review. pt remains intubated and tf for nutritional support. pt + covid. she from [facility]. will cont following as needed for dc needs.
--- NOTE | 2020-04-15 09:30 | NUR ---
RD consulted for tube feed recommendations: change tube feed formula to Vital AF 1.2 at goal 40ml/hr while on propofol. No water flushes needed to meet fluid needs while pt on IVF.
--- NOTE | 2020-04-15 15:39 | NUR ---
ASSUMED CARE AT 0800, ASSESSMENT AND VITAL SIGNS COMPLETED PER ICU PROTOCOL. DR. HINSON ROUNDED THIS AM, ENT ROUNDED THIS AM, PLAN OF CARE DISCUSSED. PT COVID TEST CAME BACK POSITIVE. PT TRANSFERRED TO COVID POD 1 IN THE ICU. REPORT GIVEN TO ARON FIELDS. PT REMAINS, SEDATED AND INTUBATED UPON TRANSFER.
--- NOTE | 2020-04-15 16:21 | NUR ---
PATIENT MOVED TO 239 AT AROUND NOON, ON THE VENT AND SEDATION. ASSESSMENT DOCUMENTED, WILL CONTINUE WITH CURRENT POC.
[2020-04-16] VITALS (42 sets, daily range): BP systolic 99–150; BP diastolic 42–85
[2020-04-16 05:43] LABS: HEMATOCRIT 31.6 % (37.0-47.0); HEMOGLOBIN 10.2 gm/dL (12.0-15.0); MCH 28.9 pg (26.0-34.0); MCHC 32.4 g/dL (28.0-37.0); MCV 89.2 fL (80.0-100.0); RBC 3.54 mil/uL (4.20-5.00); RDW 15.8 % (10.5-14.5)
[2020-04-16 06:35] LABS: CALCIUM 8.2 mg/dL (8.5-10.1); CREATININE 0.4 mg/dL (0.6-1.0); POTASSIUM 3.4 mmol/L (3.5-5.1)
--- NOTE | 2020-04-16 09:57 | NUR ---
cm provided update to nhi [facility] [phone]
--- NOTE | 2020-04-16 17:12 | NUR ---
PT CARE ASSUMED APPROX 0715. ASSESSMENTS CHARTED. NO APPARENT PAIN NOTED. TURNING PT Q2 HRS. VSS. PT TOLERATING POC. CLINICAL UPDATE GIVEN TO TAXICAB DRIVER AT PT'S RESIDENTIAL FACILTY. NO ACUTE CHANGES NOTED. NO DISTRESS NOTED.
[2020-04-17] VITALS (72 sets, daily range): BP systolic 73–164; BP diastolic 37–97
[2020-04-17 06:46] LABS: CALCIUM 7.5 mg/dL (8.5-10.1); CREATININE 0.4 mg/dL (0.6-1.0); POTASSIUM 3.5 mmol/L (3.5-5.1)
--- NOTE | 2020-04-17 08:11 | NUR ---
assessment as charted, pt remqains sedated opens eyes with repositioning, labs drawn thru r upper picc, collado and bm earlier in the morning, restraints and repositioned as charted tolerating poc, report given to next shift.
[2020-04-17 12:26] LABS: BE(vivo) -2.3 mmol/L (-2 to +3); HCO3 23.3 mmol/L (22.0-26.0); PCO2 43.3 mmHg (35.0-45.0); PO2 64.5 mmHg (80.0-100.0); pH 7.349 (7.360-7.450); sO2 91.6 % (92.0-98.0)
--- NOTE | 2020-04-17 18:43 | NUR ---
ASSUMED CARE @ 0700 04/17/20, PT ASSESSMENTS AND VSS COMPLETE PER ICU PRT. PT ON PROPOFOL AND FENTANYL FOR VENT MANAGEMENT, PT DOES WAKE UP BUT DOES NOT FOLLOW COMMANDS, SHE JUST THRASHIES EVERYWHERE. CPAP PERFORMED TODAY, PT ABLE TO TOLERATE RESPIRATORY FIELD BUT NOT FOLLOWING ANY COMMANDS LIKE MENTIONED EARLIER. PT STILL ON LEVOPHED, RN HAS TRIED TO TITRATE DOWN BUT UNABLE TO DURING THIS SHIFT. WILL CONT TO MONITOR.
[2020-04-18] VITALS (80 sets, daily range): BP systolic 78–130; BP diastolic 48–80
[2020-04-18 06:29] LABS: CALCIUM 7.3 mg/dL (8.5-10.1); CREATININE 0.3 mg/dL (0.6-1.0); POTASSIUM 3.2 mmol/L (3.5-5.1)
--- NOTE | 2020-04-18 07:40 | NUR ---
ASSUMED CARE AT 1900. SEDATION STOPPED 2124 FOR ABOUT 20 MINUTES, PT FLAILED ARMA AND STARTED GRABBING AT LINES, BUT DID NOT RESPOND TO COMMANDS. NO PAIN OR NAUSEA NOTED OVERNIGHT. LEVOPHED AT 6 MCG/MIN OVERNIGHT, BP AND MAP STABLE, DID NOT ADJUST DRIP OVERNIGHT. BLOOD SUGARS 94 AND 85, NO INSULIN GIVEN OVERNIGHT. GOOD URINE OUTPUT. BATH GIVEN THIS AM. NO OTHER CONCERNS.
--- NOTE | 2020-04-18 11:26 | NUR ---
PAGED DR. CALVO, RE K 3.2. WILL PL[address] ORDERS.
--- NOTE | 2020-04-18 17:01 | NUR ---
FAXED CLINICAL UPDATE TO [facility] RECEIVED CONFIRMATION AND LEFT MSG WITH BUBBA IN ADM. DP TO FOLLOW.
[2020-04-19] VITALS (71 sets, daily range): BP systolic 82–145; BP diastolic 43–84
[2020-04-19 02:54] LABS: ANION GAP < 0 mmol/L (7-16); BUN 11 mg/dL (7-18); CALCIUM 7.3 mg/dL (8.5-10.1); CHLORIDE 102 mmol/L (98-107); CO2 35 mmol/L (21-32); CREATININE 0.3 mg/dL (0.6-1.0); GLUCOSE 91 mg/dL (74-106); POTASSIUM 3.7 mmol/L (3.5-5.1); SODIUM 136 mmol/L (136-145)
--- NOTE | 2020-04-19 11:08 | NUR ---
updates sent to [facility] yesterday. pt remains intubated with tube feedings for nutritional needs. will cont following as needed for dc needs.
--- NOTE | 2020-04-19 15:55 | NUR ---
MASSAGED L CHEEK/PAROTID AREA WITH THUMB AND FINGERS THIS AM AND NOW. OBTAINED OBTAINED DARK VÁSQUEZ THICK PURULENT SECRETIONS THIS AM, NOW OBTAINING THICK LIGHT BROWN PURULENT SECRETIONS. ORAL CARE PROVIDED EVERY [address] CALVO PRESENT THIS AM, DR. HARRELL EARLY AFTERNOON AND DR. JIMENEZ- ALL UPDATED.
--- NOTE | 2020-04-19 19:52 | NUR ---
this am when repositioning pt she has an explosive, very large stool down to her knees. pt cleaned, then when pulling her up in bed, she had another large stool. flexiseal placed with ease, well tolerated. parotid massage performed twice during shift about [address] Damon's order. initially obtained dark medrano thick purulent drainage, then obtained light brown thick purulent drainage. both times suctioned large amount to copious thick secretions from ett.
[2020-04-20] VITALS (24 sets, daily range): BP systolic 92–124; BP diastolic 45–67
[2020-04-20 05:57] LABS: HEMATOCRIT 27.1 % (37.0-47.0); HEMOGLOBIN 8.9 gm/dL (12.0-15.0); MCH 28.9 pg (26.0-34.0); MCHC 32.8 g/dL (28.0-37.0); PLATELET COUNT 204 thou/uL (150-400); RBC 3.08 mil/uL (4.20-5.00); RDW 16.5 % (10.5-14.5); WBC 10.5 thou/uL (4.0-11.0)
[2020-04-20 06:12] LABS: ALBUMIN 1.3 g/dL (3.4-5.0); ANION GAP 3 mmol/L (7-16); BUN 9 mg/dL (7-18); CHLORIDE 98 mmol/L (98-107); CO2 33 mmol/L (21-32); CREATININE 0.3 mg/dL (0.6-1.0); GLUCOSE 84 mg/dL (74-106); POTASSIUM 3.5 mmol/L (3.5-5.1); SGOT 21 U/L (15-37); SGPT 10 U/L (30-65); SODIUM 134 mmol/L (136-145); TOTAL BILIRUBIN < 0.1 mg/dL (0.2-1.0); TOTAL PROTEIN 4.6 g/dL (6.4-8.2)
[2020-04-20 10:24] LABS: ABSOLUTE NEUTROPHILS 9.3 thou/uL (1.4-8.2)
[2020-04-20 10:25] LABS: ANISOCYTOSIS 1+
[2020-04-20 10:26] LABS: TOXIC GRANULATION 1+
--- NOTE | 2020-04-20 13:26 | NUR ---
ASSUMED CARE AT 0700, ASSESSMENT AND VITAL SIGNS COMPLETED PER ICU PROTOCOL. DR. HARRELL PAGED AND NOTIFIED OF TACHYCARDIA, HYPOTENSION, INCREASED LEVOPHED, AND INCREASED OXYGEN DEMANDS THIS MORNING. NEW ORDERS RECEIVED AND EXECUTED. DR. HINSON ROUNDED, PLAN OF CARE DISCUSSED AND UPDATE PROVIDED. RN WILL CONTINUE TO MONITOR.
[2020-04-21] VITALS (68 sets, daily range): BP systolic 89–170; BP diastolic 47–79
[2020-04-21 05:53] LABS: HEMATOCRIT 23.2 % (37.0-47.0); HEMOGLOBIN 7.6 gm/dL (12.0-15.0); MCH 28.5 pg (26.0-34.0); MCHC 32.8 g/dL (28.0-37.0); RBC 2.67 mil/uL (4.20-5.00); RDW 16.7 % (10.5-14.5); WBC 14.2 thou/uL (4.0-11.0)
[2020-04-21 05:59] LABS: CALCIUM 7.3 mg/dL (8.5-10.1); CREATININE 0.3 mg/dL (0.6-1.0)
[2020-04-21 06:14] LABS: POTASSIUM 2.6 mmol/L (3.5-5.1)
[2020-04-21 13:29] LABS: MAGNESIUM 1.6 mg/dL (1.8-2.4)
--- NOTE | 2020-04-21 18:00 | NUR ---
Pt supported on ventilator. Sedated with Propofol and Fentanyl. Pt received 500 ml fluid bolus and Albumen. Titrating down Levophed as tolerated. Maintained in Isolation for COVID precautions. Continue to work toward goals.
[2020-04-21 22:59] LABS: POTASSIUM 3.1 mmol/L (3.5-5.1)
[2020-04-22] VITALS (17 sets, daily range): BP systolic 81–158; BP diastolic 44–91
[2020-04-22 05:17] LABS: HCO3 36.8 mmol/L (22.0-26.0); PCO2 51.9 mmHg (35.0-45.0); PO2 66.6 mmHg (80.0-100.0); pH 7.469 (7.360-7.450); sO2 93.9 % (92.0-98.0)
[2020-04-22 06:33] LABS: CALCIUM 7.1 mg/dL (8.5-10.1); CREATININE 0.2 mg/dL (0.6-1.0); POTASSIUM 3.6 mmol/L (3.5-5.1)
--- NOTE | 2020-04-22 11:50 | NUR ---
cm notified from bedside nurse that after MD round will be possible be dr rodriguez consult for comfort. will cont following as needed for dc needs.
[2020-04-22 12:56] LABS: HEMOGLOBIN 7.2 gm/dL (12.0-15.0)
[2020-04-22 12:57] LABS: HEMATOCRIT 20.1 % (37.0-47.0); MCHC 35.8 g/dL (28.0-37.0); MCV 86.5 fL (80.0-100.0); RBC 2.32 mil/uL (4.20-5.00); RDW 16.3 % (10.5-14.5); WBC 9.6 thou/uL (4.0-11.0)
[2020-04-22 13:35] LABS: BE(vivo) 10.6 mmol/L (-2 to +3); HCO3 35.6 mmol/L (22.0-26.0); PCO2 52.3 mmHg (35.0-45.0); PO2 70.5 mmHg (80.0-100.0); pH 7.451 (7.360-7.450); sO2 94.6 % (92.0-98.0)
--- NOTE | 2020-04-22 16:12 | NUR ---
PRONED PATIENT AT 1600
[2020-04-23] VITALS (41 sets, daily range): BP systolic 87–168; BP diastolic 45–99
[2020-04-23 05:57] LABS: HEMATOCRIT 21.1 % (37.0-47.0); HEMOGLOBIN 7.2 gm/dL (12.0-15.0); MCH 30.2 pg (26.0-34.0); MCHC 34.2 g/dL (28.0-37.0); MCV 88.2 fL (80.0-100.0); RBC 2.39 mil/uL (4.20-5.00); RDW 16.5 % (10.5-14.5); WBC 11.6 thou/uL (4.0-11.0)
[2020-04-23 06:27] LABS: CALCIUM 7.7 mg/dL (8.5-10.1); CREATININE 0.3 mg/dL (0.6-1.0); POTASSIUM 3.4 mmol/L (3.5-5.1)
[2020-04-23 08:16] LABS: BE(vivo) 9.5 mmol/L (-2 to +3); HCO3 36.4 mmol/L (22.0-26.0); pH 7.343 (7.360-7.450)
[2020-04-23 08:17] LABS: PCO2 68.6 mmHg (35.0-45.0)
--- NOTE | 2020-04-23 10:12 | NUR ---
rosi spoke with bedside nurse, no dnr form from [place] office has been received yet, rosi reached out to dr rodriguez and he has not received anything yet either. rosi left message with nhi webster [phone], after hours [phone] requested dnr form to be sent to dr rodriguez or rosi [facility]. will cont following as needed for dc needs. information passed on to bedside nurse.
--- NOTE | 2020-04-23 15:48 | NUR ---
REFERRAL CALLED TO [facility].
--- NOTE | 2020-04-23 16:36 | NUR ---
DR YOON ORDER PALLIATIVE EXTUBAION. WILL GIVE MORPHINE IV AND COLLADORATE MARY KAUFMAN RT.
--- NOTE | 2020-04-23 16:51 | NUR ---
PT EXTUBATED AND ON 2L NC, MORPHINE GIVEN IV.
--- NOTE | 2020-04-23 19:05 | NUR ---
JOSE OF CALLED TO [facility] PT IS NOT A CANDIDATE.
--- NOTE | 2020-04-23 19:27 | NUR ---
REPORT GIVEN THANH SHARP AND WILL COMPLETE PACKET.
--- NOTE | 2020-04-24 01:29 | NUR ---
PATIENT 1899. LEGAL GUARDIAN SHAKA NOTIFIED, WHO PROVIDED [facility] HOME. HOME NOTIFIED TO GET IN TOUCH WITH THE LEGAL GUARDIAN. THE DESEASED WAS CLEANED, TAGGED AND BAGGED. ALL BELONGINGS SENT WITH THE DESEASED TO THE HOME. PT NOT A CANDIDATE FOR [employer]ISSUE [employer] DONATION. ALL CASE PHYSICIANS AND PRIMARY UPDATED. BODY WAS RELEASED AT 1210 WITH [facility] PERSONNEL.
== END 2020-04-23 19:00 | DRG 870 ==
LOC: ER 12:20 → EROBS 15:45 → 2N 15:45 → ICU 04-13 03:24
PROVIDERS: Hospitalist; Internal Medicine; Internal Medicine Pulmonary Disease; Nurse Practitioner; Nurse Practitioner Family; Pediatrics; Physician Assistant; Specialist; ADMIT Hospitalist; ATTEND Hospitalist
DX: A41.9 Sepsis, unspecified organism (principal); E43 Unspecified severe protein-calorie malnutrition; U07.1 COVID-19; J96.01 Acute respiratory failure with hypoxia; G93.41 Metabolic encephalopathy; R65.21 Severe sepsis with septic shock; E87.1 Hypo-osmolality and hyponatremia; B26.9 Mumps without complication; F20.9 Schizophrenia, unspecified; F41.9 Anxiety disorder, unspecified; F31.9 Bipolar disorder, unspecified; E03.9 Hypothyroidism, unspecified; M19.90 Unspecified osteoarthritis, unspecified site; J44.9 Chronic obstructive pulmonary disease, unspecified; K58.9 Irritable bowel syndrome, unspecified; Z96.641 Presence of right artificial hip joint; F17.210 Nicotine dependence, cigarettes, uncomplicated; R65.20 Severe sepsis without septic shock; E87.6 Hypokalemia; Z66 Do not resuscitate; G47.00 Insomnia, unspecified; E53.8 Deficiency of other specified B group vitamins; E55.9 Vitamin D deficiency, unspecified; I95.9 Hypotension, unspecified; D64.9 Anemia, unspecified; Z68.23 Body mass index [BMI] 23.0-23.9, adult; Z88.8 Allergy status to other drugs, medicaments and biological substances; Z79.899 Other long term (current) drug therapy
CPT/HCPCS: 10078; 10081; 27000